=== PATIENT | male | born 1965 | race African-American/Black ===

== ENCOUNTER 2022-07-04 13:20 | Outpatient (CLI) | payer OTHER | END 2022-07-04 13:21 | disposition home or self-care (01) | LOC: ULT 13:20 | PROVIDERS: ATTEND Family Medicine | DX: N43.3 Hydrocele, unspecified (principal); N50.3 Cyst of epididymis | CPT/HCPCS: 76870; 93976 ==

== ENCOUNTER 2024-11-28 10:18 | Outpatient (CLI) | payer BC, OTHER ==
[2024-11-28 11:42] LABS: #Basophils 0.03 10x3/uL (0.0-0.2); %Basophils 0.7 % (0.0-1.0); %Eosinophils 6.6 % (0.0-10.0); %Lymphocytes 38.8 % (21.0-51.0); %Monocytes 6.8 % (0.0-10.0); %Neutrophils 46.9 % (42.0-75.0); Hematocrit 41.4 % (42.0-52.0); Hemoglobin 13.7 g/dL (14.0-18.0); Mean Corpuscular HGB CONC 33.1 g/dL (32.0-36.0); Mean Corpuscular Hemoglobin 27.7 pg (27.0-31.0); Mean Corpuscular Volume 83.8 fL (78.0-98.0); Mean Platelet Volume 10.1 fL (7.4-10.4); Platelet Count 262 10x3/uL (130-400); RBC Distribution Width 13.2 % (11.5-14.5); Red Blood Cell (RBC) Count 4.94 mill/uL (4.70-6.10)
[2024-11-28 11:44] LABS: Bacteria/HPF None Seen HPF (None Seen); Bilirubin Negative (Negative); Blood, Urine Negative (Negative); Clarity Clear (Clear); Glucose, Urine (Dipstick) Normal (Negative); Ketone, Urine Negative (Negative); Leukocyte Negative Leu/uL (Negative); Nitrite Negative (Negative); Protein, Urine (Dipstick) Negative (Neg-Trace); RBC/HPF 0-3 HPF (0-3); Specific Gravity, Urine 1.012 (1.002-1.036); Squamous Epithelial None Seen HPF (0-3); Urobilinogen Normal mg/dL (Less than 2); WBC/HPF 0-3 HPF (0-3); pH, Urine 5.5 (5.0-9.0)
[2024-11-28 11:56] LABS: INR-International Normal Ratio 0.9; Prothrombin Time 12.4 sec (12.0-14.7)
[2024-11-28 11:57] LABS: PTT 28.5 sec (22.9-36.1)
[2024-11-28 12:08] LABS: Anion Gap 12 mmol/L (10-20); BUN (Urea Nitrogen) 13 mg/dL (8.4-25.7); Calc. Creatinine Clearance 0 mL/min (70-130); Calcium 9.2 mg/dL (7.8-10.44); Carbon Dioxide 26 mmol/L (22-29); Chloride 107 mmol/L (98-107); Estimated GFR 99; Glucose 122 mg/dL (70-105); Potassium 3.9 mmol/L (3.5-5.1); Sodium 141 mmol/L (136-145)
== END 2024-11-28 10:19 | disposition home or self-care (01) ==
LOC: LABBT 10:18
PROVIDERS: ATTEND Urology
DX: Z01.818 Encounter for other preprocedural examination (principal); N43.40 Spermatocele of epididymis, unspecified; E11.9 Type 2 diabetes mellitus without complications; N52.9 Male erectile dysfunction, unspecified; T78.3XXA Angioneurotic edema, initial encounter
CPT/HCPCS: 80048; 81001; 85025; 85610; 85730; 87086; 93005; 93010

== ENCOUNTER 2024-12-08 10:45 | Day surgery (SDC) | payer BC, OTHER ==
[2024-11-28 10:25] VITALS: BMI 29.9
[2024-12-08] MEDS ORDERED: Sodium Chloride 0.9% 100 ML ONE (14:15)
[2024-12-08] MEDS ORDERED: CEFAZOLIN 2 GM VIAL ONE (14:15)
[2024-12-08] MEDS ORDERED: Lidocaine 2% PF 5 ML VIAL ONE (14:26)
[2024-12-08] MEDS ORDERED: PROPOFOL 20 ML ONE (14:26)
[2024-12-08] MEDS ORDERED: Bupivacaine 0.25% HCL 30 ML VIAL ONE (14:28)
[2024-12-08] MEDS ORDERED: Midazolam HCl 2 mg/2 ml Vial ONE (14:37)
[2024-12-08] MEDS ORDERED: fentaNYL PF 100 MCG/2 ML SYRINGE ONE (14:37)
[2024-12-08] MEDS ORDERED: Ketorolac Tromethamine 30 MG (1 mL) VIAL ONE (15:37)
[2024-12-08] MEDS ORDERED: Ondansetron PF 4 MG/2 ML Vial ONE (15:38)
[2024-12-08] MEDS ORDERED: Dexamethasone 20 MG/5 ML VIAL ONE (15:38)
[2024-12-08] MEDS ORDERED: Glycopyrrolate 0.2 MG/ML 5 ML SYRINGE ONE (15:53)
[2024-12-08] MEDS ORDERED: PHENYLEPHRINE-NS 100 MCG/ML 10 ML SYRINGE ONE (15:53)
== END 2024-12-08 17:30 | disposition home or self-care (01) ==
LOC: SDC 10:45
PROVIDERS: ATTEND Urology
PROC: 0VBK0ZZ Excision of Left Epididymis, Open Approach (ICD-10-PCS; principal; 2024-12-08)
DX: N43.40 Spermatocele of epididymis, unspecified (principal); E11.9 Type 2 diabetes mellitus without complications; K21.9 Gastro-esophageal reflux disease without esophagitis; F10.10 Alcohol abuse, uncomplicated; I10 Essential (primary) hypertension; E78.5 Hyperlipidemia, unspecified; Z79.899 Other long term (current) drug therapy
CPT/HCPCS: 88302; J0665; J1100; J1885; J2250; J2405; J2704